=== PATIENT | female | born 1960 | race Caucasian/White ===

== ENCOUNTER 2022-12-13 13:54 | Inpatient (IN) | payer OTHER ==
[~2022-12-13] VITALS: Ht 160 cm; Wt 113.9 kg
[2022-12-13] MEDS ORDERED: HEPARIN SODIUM,PORCINE 5,000 UNITS/ML VIAL IVP PRN ×2 (14:15)
[2022-12-13] MEDS ORDERED: ONDANSETRON HCL 4 MG/2 ML VIAL IVP PRN (14:30)
[2022-12-13] MEDS ORDERED: ACETAMINOPHEN 325 MG TABLET PO PRN (14:30)
[2022-12-13] MEDS ORDERED: DEXTROSE 50%-WATER 25 GM/50 ML SYRINGE IVP PRN (14:30)
[2022-12-13] MEDS: HEPARIN SODIUM 25000 UNITS/D5W 250 ML IV PRN (14:32)
[2022-12-13 14:54] LABS: BASOPHILS % (AUTO) 0.9 % (0.0-2.0); EOSINOPHILS % (AUTO) 10.7 % (1.0-6.0); HEMATOCRIT 42.1 % (36-46); HEMOGLOBIN 13.7 g/dL (12.0-16.0); LYMPHOCYTES # (AUTO) 3.4 K/uL (1.0-4.8); LYMPHOCYTES % (AUTO) 29.9 % (22.0-44.0); MEAN CORPUSCULAR HGB CONC 32.5 G/dL (31.0-37.0); MEAN CORPUSCULAR VOLUME 92 fL (80-100); MONOCYTES # (AUTO) 0.9 K/uL (0.1-1.0); MONOCYTES % (AUTO) 7.5 % (2.0-9.0); NEUTROPHILS # (AUTO) 5.8 K/uL (1.8-7.7); PLATELET COUNT (AUTO) 309 K/uL (150-450); RED BLOOD CELL COUNT(AUTO) 4.56 MIL/uL (4.00-5.20); RED CELL DISTRIBUTION WIDTH 14.1 % (11.5-14.5)
[2022-12-13 15:01] LABS: ANION GAP 11 mmol/L (8-16); CALCIUM, TOTAL 9.1 mg/dL (8.8-10.5); CARBON DIOXIDE 25 mmol/L (22-29); CHLORIDE 103 mmol/L (98-107); CREATININE 0.57 mg/dL (0.60-1.30); GLOMERULAR FILTR. RATE CALC > 60 mL/min (>60); GLUCOSE,RANDOM 143 mg/dL (70-110); SODIUM SERUM 139 mmol/L (136-145); UREA NITROGEN, BLOOD 15 mg/dL (7-18)
[2022-12-13 15:40] LABS: APPEARANCE,URINE CLEAR (CLEAR); BILIRUBIN,URINE NEGATIVE (NEGATIVE); GLUCOSE, URINE (UA) >=1000 mg/dL (NEGATIVE); KETONES,URINE NEGATIVE (NEGATIVE); LEUKOCYTE ESTERASE ,URINE NEGATIVE (NEGATIVE); NITRATE,URINE NEGATIVE (NEGATIVE); OCCULT BLOOD,URINE NEGATIVE (NEGATIVE); PROTEIN,URINE NEGATIVE (NEGATIVE); SPECIFIC GRAVITIY, URINE 1.021 (1.003-1.030); UROBILINOGEN,URINE <=1.0 mg/dL (<=1.0)
[2022-12-13 15:47] LABS: BACTERIA,URINE Rare /HPF (None Seen); RBC,URINE 0-2 /HPF (0-2); SQUAMOUS EPITHELIAL CELL,UR Few /LPF (None Seen); WBC,URINE 0-2 /HPF (0-5); YEAST,URINE Few /HPF (None Seen)
[2022-12-13 18:31] LABS: GLUCOSE,POINT OF CARE 120 MG/DL (70-110)
[2022-12-13] MEDS: CARVEDILOL 6.25 MG TABLET PO SCH (20:47)
[2022-12-13] MEDS: DOCUSATE SODIUM 100 MG CAPSULE PO SCH (20:47)
[2022-12-14 10:13] VITALS: BP 124/93
[2022-12-14] MEDS: CARVEDILOL 6.25 MG TABLET PO SCH ×2 (10:46→20:19)
[2022-12-14] MEDS: FAMOTIDINE 20 MG TABLET PO SCH (10:47)
[2022-12-14] MEDS: DOCUSATE SODIUM 100 MG CAPSULE PO SCH ×2 (10:47→20:19)
[2022-12-14] MEDS: ATORVASTATIN CALCIUM 40 MG TABLET PO SCH (10:47)
[2022-12-14 11:37] VITALS: BP 110/56
[2022-12-14] MEDS: INSULIN LISPRO 100 UNITS/ML SQ PRN ×3 (12:12→20:20)
[2022-12-14 17:29] VITALS: BP 117/62
[2022-12-14 20:15] VITALS: BP 142/67
[2022-12-14 20:16] LABS: GLUCOMETER DEV NAME(LOC) 5S.1B; GLUCOSE,POINT OF CARE 272 MG/DL (70-110)
[2022-12-14] MEDS: TICAGRELOR 60 MG TABLET PO SCH (20:19)
[2022-12-14 20:21] LABS: GLUCOMETER DEV NAME(LOC) 5N.2C; GLUCOSE,POINT OF CARE 184 MG/DL (70-110)
[2022-12-14] MEDS: HEPARIN SODIUM 25000 UNITS/D5W 250 ML IV PRN (22:46)
[2022-12-15] VITALS (7 sets, daily range): BP systolic 109–181; BP diastolic 48–72
[2022-12-15 03:26] LABS: GLUCOMETER DEV NAME(LOC) 5S.1B; GLUCOSE,POINT OF CARE 210 MG/DL (70-110)
[2022-12-15] MEDS: INSULIN LISPRO 100 UNITS/ML SQ PRN ×4 (06:34→20:43)
[2022-12-15 06:46] LABS: GLUCOMETER DEV NAME(LOC) 5S.1B; GLUCOSE,POINT OF CARE 181 MG/DL (70-110)
[2022-12-15] MEDS ORDERED: SODIUM BICARBONATE 50 MEQ/50 ML VIAL ONE (07:09)
[2022-12-15] MEDS ORDERED: LIDOCAINE/PF 1% 30 ML VIAL ONE (07:09)
[2022-12-15] MEDS ORDERED: HEPARIN SODIUM 1000 UNITS/NS 1,000 ML ONE (07:10)
[2022-12-15] MEDS ORDERED: IOHEXOL 300 MG/ML 100 ML VIAL ONE ×3 (07:10→08:39)
[2022-12-15] MEDS ORDERED: VERAPAMIL HCL 2.5 MG/ML 2 ML VIAL ONE (07:20)
[2022-12-15] MEDS ORDERED: NITROGLYCERIN 50 MG/D5% WATER 250 ML ONE (07:20)
[2022-12-15] MEDS ORDERED: FentaNYL CITRATE PF 100 MCG/2 ML VIAL ONE (07:34)
[2022-12-15] MEDS ORDERED: MIDAZOLAM HCL 2 MG/2 ML VIAL ONE (07:35)
[2022-12-15] MEDS: ASPIRIN 81 MG CHEWABLE TABLET PO SCH (07:40)
[2022-12-15] MEDS: CARVEDILOL 6.25 MG TABLET PO SCH ×2 (07:40→20:42)
[2022-12-15] MEDS: DOCUSATE SODIUM 100 MG CAPSULE PO SCH ×2 (07:40→21:00)
[2022-12-15] MEDS: TICAGRELOR 60 MG TABLET PO SCH (07:40)
[2022-12-15] MEDS: ATORVASTATIN CALCIUM 40 MG TABLET PO SCH (07:43)
[2022-12-15] MEDS: FAMOTIDINE 20 MG TABLET PO SCH (07:51)
[2022-12-15] MEDS ORDERED: VERAPAMIL HCL 2.5 MG/ML 2 ML VIAL IARTER ONE (08:00)
[2022-12-15] MEDS ORDERED: HEPARIN SODIUM 1000 UNITS/NS 1,000 ML IARTER ONE (08:00)
[2022-12-15] MEDS ORDERED: IOHEXOL 300 MG/ML 100 ML VIAL IARTER ONE ×3 (08:00→09:15)
[2022-12-15] MEDS ORDERED: NITROGLYCERIN/D5W 50 MG/250 ML IV BOTTLE IARTER ONE (08:00)
[2022-12-15] MEDS ORDERED: HEPARIN SODIUM,PORCINE 1,000 UNITS/ML 10 ML VIAL IARTER ONE (08:00)
[2022-12-15] MEDS ORDERED: FentaNYL CITRATE PF 100 MCG/2 ML VIAL IVP ONE (08:00)
[2022-12-15] MEDS ORDERED: LIDOCAINE 1% 30 ML/SOD BICARB 8.4% 4 ML SQ ONE (08:00)
[2022-12-15] MEDS ORDERED: MIDAZOLAM HCL 2 MG/2 ML VIAL IVP ONE ×3 (08:15→09:15)
[2022-12-15] MEDS ORDERED: HEPARIN SODIUM,PORCINE 1,000 UNITS/ML 10 ML VIAL IVP ONE ×2 (08:30→10:00)
[2022-12-15] MEDS ORDERED: TICAGRELOR 90 MG TABLET ONE (08:55)
[2022-12-15] MEDS ORDERED: ASPIRIN 81 MG CHEWABLE TABLET ONE (08:55)
[2022-12-15] MEDS ORDERED: TICAGRELOR 90 MG TABLET PO ONE (09:00)
[2022-12-15] MEDS ORDERED: ASPIRIN 81 MG CHEWABLE TABLET PO ONE (09:00)
[2022-12-15] MEDS ORDERED: IOHEXOL 300 MG/ML 50 ML VIAL ONE (09:10)
[2022-12-15] MEDS ORDERED: HYDROmorphone HCL 2 MG/ML SYRINGE IVP PRN (10:15)
[2022-12-15 11:45] LABS: BASOPHILS % (AUTO) 1.1 % (0.0-2.0); EOSINOPHILS % (AUTO) 11.1 % (1.0-6.0); HEMATOCRIT 42.1 % (36-46); HEMOGLOBIN 13.7 g/dL (12.0-16.0); LYMPHOCYTES # (AUTO) 2.4 K/uL (1.0-4.8); LYMPHOCYTES % (AUTO) 27.9 % (22.0-44.0); MEAN CORPUSCULAR HEMOGLOBIN 30.3 pg (26.0-34.0); MEAN CORPUSCULAR HGB CONC 32.6 G/dL (31.0-37.0); MEAN CORPUSCULAR VOLUME 93 fL (80-100); MONOCYTES # (AUTO) 0.7 K/uL (0.1-1.0); MONOCYTES % (AUTO) 7.5 % (2.0-9.0); NEUTROPHILS # (AUTO) 4.6 K/uL (1.8-7.7); NEUTROPHILS % (AUTO) 52.4 % (40.0-70.0); PLATELET COUNT (AUTO) 276 K/uL (150-450); RED BLOOD CELL COUNT(AUTO) 4.52 MIL/uL (4.00-5.20)
[2022-12-15 11:56] LABS: ANION GAP 9 mmol/L (8-16); CARBON DIOXIDE 26 mmol/L (22-29); CHLORIDE 101 mmol/L (98-107); CREATININE 0.59 mg/dL (0.60-1.30); GLOMERULAR FILTR. RATE CALC > 60 mL/min (>60); GLUCOSE,RANDOM 217 mg/dL (70-110); POTASSIUM 3.9 mmol/L (3.5-5.1); SODIUM SERUM 136 mmol/L (136-145); UREA NITROGEN, BLOOD 14 mg/dL (7-18)
[2022-12-15 12:01] LABS: CHOL/HDL RATIO 2.6 (3.9-5.7); CHOLESTEROL 122 mg/dL (131-200); HDL CHOLESTEROL 47 mg/dL (40-60); LDL CHOL (CALC.) 46 mg/dL (0-130); TRIGLYCERIDES 143 mg/dL (15-150)
[2022-12-15 18:06] LABS: GLUCOMETER DEV NAME(LOC) 5N.1C; GLUCOSE,POINT OF CARE 190 MG/DL (70-110)
[2022-12-15 20:16] LABS: GLUCOMETER DEV NAME(LOC) 5S.2C; GLUCOSE,POINT OF CARE 178 MG/DL (70-110)
[2022-12-15] MEDS: TICAGRELOR 90 MG TABLET PO SCH (20:42)
[2022-12-16 00:37] VITALS: BP 122/83
[2022-12-16 04:39] VITALS: BP 121/65
[2022-12-16 05:11] LABS: GLUCOMETER DEV NAME(LOC) 5N.2C; GLUCOSE,POINT OF CARE 197 MG/DL (70-110)
[2022-12-16 06:29] LABS: BASOPHILS % (AUTO) 0.6 % (0.0-2.0); EOSINOPHILS % (AUTO) 9.9 % (1.0-6.0); HEMATOCRIT 40.8 % (36-46); HEMOGLOBIN 13.6 g/dL (12.0-16.0); LYMPHOCYTES # (AUTO) 2.4 K/uL (1.0-4.8); LYMPHOCYTES % (AUTO) 25.2 % (22.0-44.0); MEAN CORPUSCULAR HEMOGLOBIN 30.7 pg (26.0-34.0); MEAN CORPUSCULAR HGB CONC 33.4 G/dL (31.0-37.0); MEAN CORPUSCULAR VOLUME 92 fL (80-100); MONOCYTES # (AUTO) 0.9 K/uL (0.1-1.0); MONOCYTES % (AUTO) 9.2 % (2.0-9.0); NEUTROPHILS # (AUTO) 5.2 K/uL (1.8-7.7); NEUTROPHILS % (AUTO) 55.1 % (40.0-70.0); PLATELET COUNT (AUTO) 288 K/uL (150-450); RED BLOOD CELL COUNT(AUTO) 4.43 MIL/uL (4.00-5.20); RED CELL DISTRIBUTION WIDTH 13.7 % (11.5-14.5)
[2022-12-16] MEDS: INSULIN LISPRO 100 UNITS/ML SQ PRN ×2 (06:29→12:05)
[2022-12-16 06:56] LABS: ANION GAP 9 mmol/L (8-16); CARBON DIOXIDE 27 mmol/L (22-29); CHLORIDE 101 mmol/L (98-107); CREATININE 0.63 mg/dL (0.60-1.30); GLOMERULAR FILTR. RATE CALC > 60 mL/min (>60); GLUCOSE,RANDOM 218 mg/dL (70-110); POTASSIUM 4.1 mmol/L (3.5-5.1); SODIUM SERUM 137 mmol/L (136-145); UREA NITROGEN, BLOOD 13 mg/dL (7-18)
[2022-12-16 07:08] VITALS: BP 120/78
[2022-12-16 08:16] LABS: GLUCOMETER DEV NAME(LOC) 5N.2C; GLUCOSE,POINT OF CARE 220 MG/DL (70-110)
[2022-12-16] MEDS ORDERED: LOSA-382 PO (08:17)
[2022-12-16] MEDS ORDERED: AMLO5TAB66 PO (08:18)
[2022-12-16] MEDS ORDERED: LEVO200C2 PO (08:24)
[2022-12-16] MEDS ORDERED: ROSU20TA73 PO (08:24)
[2022-12-16] MEDS ORDERED: ASPI81TA87 PO (08:24)
[2022-12-16] MEDS ORDERED: CARV6.2534 PO (08:24)
[2022-12-16] MEDS ORDERED: DULO40CA2 PO (08:24)
[2022-12-16] MEDS ORDERED: GLIM4 PO (08:27)
[2022-12-16] MEDS ORDERED: TICA90TA PO (08:27)
[2022-12-16] MEDS ORDERED: OMEP20 PO (08:27)
[2022-12-16] MEDS ORDERED: DAPA10TA PO (08:27)
[2022-12-16] MEDS ORDERED: METF-283 PO (08:27)
[2022-12-16] MEDS ORDERED: DULA0.75 SQ (08:27)
[2022-12-16] MEDS: DOCUSATE SODIUM 100 MG CAPSULE PO SCH (08:42)
[2022-12-16] MEDS: TICAGRELOR 90 MG TABLET PO SCH (08:42)
[2022-12-16] MEDS: ATORVASTATIN CALCIUM 40 MG TABLET PO SCH (08:42)
[2022-12-16] MEDS: FAMOTIDINE 20 MG TABLET PO SCH (08:43)
[2022-12-16] MEDS: ASPIRIN 81 MG CHEWABLE TABLET PO SCH (08:43)
[2022-12-16] MEDS: CARVEDILOL 6.25 MG TABLET PO SCH (08:43)
[2022-12-16 11:34] VITALS: BP 114/68
[2022-12-16 20:26] LABS: GLUCOMETER DEV NAME(LOC) 5S.2C; GLUCOSE,POINT OF CARE 276 MG/DL (70-110)
== END 2022-12-16 12:30 | disposition home health service (06) | DRG 174 ==
LOC: EMS 13:54 → 5S 12-14 04:35
PROVIDERS: ADMIT Internal Medicine; ATTEND Internal Medicine
PROC: 027034Z Dilation of Coronary Artery, One Artery with Drug-eluting Intraluminal Device, Percutaneous Approach (ICD-10-PCS; principal; 2022-12-15)
PROC: 4A023N7 Measurement of Cardiac Sampling and Pressure, Left Heart, Percutaneous Approach (ICD-10-PCS; 2022-12-15)
PROC: B2111ZZ Fluoroscopy of Multiple Coronary Arteries using Low Osmolar Contrast (ICD-10-PCS; 2022-12-15)
DX: I21.4 Non-ST elevation (NSTEMI) myocardial infarction (principal); E44.0 Moderate protein-calorie malnutrition; T82.855A Stenosis of coronary artery stent, initial encounter; E03.9 Hypothyroidism, unspecified; E11.9 Type 2 diabetes mellitus without complications; I10 Essential (primary) hypertension; I25.10 Atherosclerotic heart disease of native coronary artery without angina pectoris; E66.01 Morbid (severe) obesity due to excess calories; E78.00 Pure hypercholesterolemia, unspecified; F41.9 Anxiety disorder, unspecified; F32.A Depression, unspecified; Y83.8 Other surgical procedures as the cause of abnormal reaction of the patient, or of later complication, without mention of misadventure at the time of the procedure; Z68.41 Body mass index [BMI] 40.0-44.9, adult; Y92.89 Other specified places as the place of occurrence of the external cause; Z88.8 Allergy status to other drugs, medicaments and biological substances; Z83.3 Family history of diabetes mellitus; Z82.49 Family history of ischemic heart disease and other diseases of the circulatory system
CPT/HCPCS: 71045; 80048; 80061; 81001; 82962; 84484; 85025; 85730; 92920; 92921; 92928; 93005; 93306; 99291; G0378; J1170; J1644; J2250; J3010; J3490; Q9967; 36415-L1; 36415-TC; Z7610